=== PATIENT | male | born 1990 | race American Indian/Alaskan Native ===

== ENCOUNTER 2025-05-19 11:32 | Emergency (ER) | payer BC ==
[2025-05-19] MEDS ORDERED: Ketorolac Tromethamine 30 MG (1 mL) VIAL ONE (12:07)
[2025-05-19] MEDS ORDERED: Oxymetazoline HCl 0.05% (30 ML BOT) ONE (12:08)
== END 2025-05-19 12:10 | disposition home or self-care (01) ==
LOC: NAV ERS 11:32
DX: A08.4 Viral intestinal infection, unspecified (principal); J01.90 Acute sinusitis, unspecified
CPT/HCPCS: 96372; 99283; J1885; Q0162

== ENCOUNTER 2025-07-02 22:56 | Emergency (ER) | payer BC ==
[2025-07-03] MEDS ORDERED: Ibuprofen 200 MG TAB ONE (00:28)
== END 2025-07-03 00:52 | disposition home or self-care (01) ==
LOC: NAV ERS 22:56
DX: S10.93XA Contusion of unspecified part of neck, initial encounter (principal); S00.83XA Contusion of other part of head, initial encounter; S00.93XA Contusion of unspecified part of head, initial encounter; S20.419A Abrasion of unspecified back wall of thorax, initial encounter; Y04.8XXA Assault by other bodily force, initial encounter
CPT/HCPCS: 70450; 70486; 72125